=== PATIENT | male | born 1945 | race Caucasian/White ===

== ENCOUNTER 2018-09-16 19:08 | Emergency (ER) | payer OTHER ==
[2018-09-16] MEDS ORDERED: fentaNYL 100 MCG/2 ML INJ IVP ONE (19:32)
[2018-09-16] MEDS ORDERED: NS 1,000 ML IV ONE (19:32)
[2018-09-16] MEDS ORDERED: ONDANSETRON 4 MG/2 ML VIAL IVP ONE (19:32)
--- NOTE | 2018-09-16 19:37 | EDPHY ---
H & P Time Seen by Provider: 09/16/18 19:20 HPI/ROS: CHIEF COMPLAINT: Abdominal pain HISTORY OF PRESENT ILLNESS: Patient is a 72-year-old male who presents emergency department suprapubic abdominal pain. He feels as though his pain is "deep inside."He describes his pain is moderate. It is not radiate. His pain is slightly worse with movement. He feels as though he has to have a bowel movement but when he sits on the toilet he does not defecate. He denies dysuria frequency. No hematuria. No flank pain. No nausea vomiting. No diarrhea. No recent trauma. No testicular pain. No pain with defecation. No rectal bleeding. REVIEW OF SYSTEMS: 10 systems were reveiwed and are negative with the exception of the elements mentioned in the history of present illness. Past Medical/Surgical History: Includes enlarged prostate, hypothyroidism, kyphosis Past surgical history: Knee surgery, hernia repair Social history: Patient does not smoke Smoking Status: Never smoked Physical Exam: Vitals noted GENERAL: Well-appearing, in no acute distress, alert. HEENT: Eyes normal to inspection, normal pharynx, no signs of dehydration. NECK: Normal, supple. RESPIRATORY: Clear to auscultation bilaterally, no rales, rhonchi or wheezing. CVS: Regular rate and rhythm, no rubs, murmurs, or gallops. ABDOMEN: Soft, nontender, nondistended, no organomegaly. Benign on exam BACK: Normal to inspection, no CVA tenderness. SKIN: Normal color, no rash, warm, dry. No pallor. EXTREMITIES: No pedal edema, no calf tenderness, no joint swelling. NEURO/PSYCH: Alert and oriented, normal mood and affect, normal motor sensory exam. Constitutional: Initial Vital Signs Temperature (C) 36.7 C 09/16/18 19:15 Heart Rate 70 09/16/18 19:15 Respiratory Rate 16 09/16/18 19:15 Blood Pressure 157/103 H 09/16/18 19:15 O2 Sat (%) 94 09/16/18 19:15 O2 Delivery Mode Room Air Allergies/Adverse Reactions: cephalexin monohydrate [From Keflex] Allergy (Mild, Verified 04/15/10 11:56) Rash Home Medications: Medication Instructions Recorded Ciprofloxacin [Cipro] 500 mg PO BID #20 tab 09/16/18 Finasteride 09/16/18 Meloxicam 09/16/18 Tamsulosin HCl 09/16/18 Thyroid 09/16/18 metroNIDAZOLE [Flagyl 500 mg (*)] 500 mg PO BID #20 tab 09/16/18 Medical Decision Making - Diagnostics Imaging Results: Imaging Impressions Abdomen CT 09/16/18 19:54 Impression: 1. Sigmoid diverticulitis without evidence of abscess or free air. 2. Moderate hiatal hernia. 3. Ectasia of the iliac arteries. Edelmira Martinez was notified of these findings by telephone at 9:16 PM on 2018 ED Course/Re-evaluation: In the emergency department I discussed possible etiologies with the patient. I answered all of his questions. IV was placed. Laboratory studies were obtained. Patient given fentanyl 50 mcg IV for pain and Zofran 4 mg IV for nausea. Patient's white count was normal. The rest CBC was unremarkable. Chemistry panel showed a slightly low sodium. UA was negative. Abdomen pelvis CT: Please refer the dictated report. The patient has sigmoid diverticulitis. No abscess. No perforation. I discussed the results with the patient. Answered all his questions. On recheck the patient was sitting comfortably in bed. He had no new complaints. Abdomen was benign. The patient was given a dose of Flagyl and Cipro. He was given prescription upon discharge. He will follow up with his primary care physician. He is given warnings prior to leaving. Differential Diagnosis: Differential includes but is not limited to urinary tract infection, pyelonephritis, prostatitis, orchitis, small-bowel obstruction, perforation, diverticulitis, abscess - Data Points Laboratory Results: Laboratory Results 09/16/18 19:35 09/16/18 19:35 09/16/18 09/16/18 09/16/18 19:35 19:35 19:35 WBC 9.45 10^3/uL 10^3/uL (3.80-9.50) RBC 4.55 10^6/uL 10^6/uL (4.40-6.38) Hgb 14.9 g/dL g/dL (13.7-17.5) Hct 43.1 % % (40.0-51.0) MCV 94.7 fL fL (81.5-99.8) MCH 32.7 pg pg (27.9-34.1) MCHC 34.6 g/dL g/dL (32.4-36.7) RDW 12.7 % % (11.5-15.2) Plt Count 270 10^3/uL 10^3/uL (150-400) MPV 10.5 fL fL (8.7-11.7) Neut % (Auto) 79.4 % H % (39.3-74.2) Lymph % (Auto) 12.0 % L % (15.0-45.0) [place] % (Auto) 6.9 % % (4.5-13.0) Eos % (Auto) 1.2 % % (0.6-7.6) Baso % (Auto) 0.4 % % (0.3-1.7) Nucleat RBC Rel Count 0.0 % % (0.0-0.2) Absolute Neuts (auto) 7.51 10^3/uL H 10^3/uL (1.70-6.50) Absolute Lymphs (auto) 1.13 10^3/uL 10^3/uL (1.00-3.00) Absolute Monos (auto) 0.65 10^3/uL 10^3/uL (0.30-0.80) Absolute Eos (auto) 0.11 10^3/uL 10^3/uL (0.03-0.40) Absolute Basos (auto) 0.04 10^3/uL 10^3/uL (0.02-0.10) Absolute Nucleated RBC 0.00 10^3/uL 10^3/uL (0-0.01) Immature Gran % 0.1 % % (0.0-1.1) Immature Gran # 0.01 10^3/uL 10^3/uL (0.00-0.10) Sodium 134 mEq/L L mEq/L (135-145) Potassium 4.2 mEq/L mEq/L (3.5-5.2) Chloride 104 mEq/L mEq/L (97-110) Carbon Dioxide 21 mEq/l L mEq/l (22-31) Anion Gap 9 mEq/L mEq/L (6-14) BUN 22 mg/dL mg/dL (7-23) Creatinine 1.0 mg/dL mg/dL (0.7-1.3) Estimated GFR > 60 Glucose 85 mg/dL mg/dL (70-100) Calcium 9.3 mg/dL mg/dL (8.5-10.4) Urine Color PALE YELLOW Urine Appearance CLEAR Urine pH 6.0 (5.0-7.5) Ur Specific [place] 1.004 (1.002-1.030) Urine Protein NEGATIVE (NEGATIVE) Urine Ketones NEGATIVE (NEGATIVE) Urine Blood NEGATIVE (NEGATIVE) Urine Nitrate NEGATIVE (NEGATIVE) Urine Bilirubin NEGATIVE (NEGATIVE) Urine Urobilinogen NEGATIVE EU EU (0.2-1.0) Ur Leukocyte Esterase NEGATIVE (NEGATIVE) Urine RBC 1-3 /hpf /hpf (0-3) Urine WBC 1-3 /hpf /hpf (0-3) Ur Epithelial Cells NONE SEEN /lpf /lpf (NONE-1+) Urine Glucose NEGATIVE (NEGATIVE) Medications Given: Discontinued Medications Fentanyl (Sublimaze) 50 mcg IVP EDNOW ONE Stop: 09/16/18 19:33 Last Admin: 09/16/18 19:42 Dose: 50 mcg Sodium Chloride (Ns) 1,000 mls @ 0 mls/hr IV EDNOW ONE; Wide Open PRN Reason: Protocol Stop: 09/16/18 19:33 Last Admin: 09/16/18 19:43 Dose: 1,000 mls Ondansetron HCl (Zofran) 4 mg IVP EDNOW ONE Stop: 09/16/18 19:33 Last Admin: 09/16/18 19:42 Dose: 4 mg Departure - Departure Disposition: Home, Routine, Self-Care Clinical Impression: Diverticulitis Abdominal pain Qualifiers: Abdominal location: lower abdomen, unspecified Qualified Code(s): R10.30 - Lower abdominal pain, unspecified Condition: Good Instructions: Diverticulitis (ED), Abdominal Pain (ED) Additional Instructions: Take your entire course of antibiotics. Return with increasing pain, fever or any other concerns. Referrals: Coleen Gomez MD [Primary Care Provider] - 2-3 days without fail Prescriptions: Ciprofloxacin [Cipro] 500 mg PO BID #20 tab metroNIDAZOLE [Flagyl 500 mg (*)] 500 mg PO BID #20 tab
[2018-09-16 19:45] LABS: PLATELET COUNT 270 10^3/uL (150-400)
[2018-09-16] MEDS ORDERED: IOPAMIDOL (ISOVUE-300) 100 ML BTL ONE (20:36)
[2018-09-16] MEDS ORDERED: metroNIDAZOLE 500 MG TAB PO ONE (21:43)
[2018-09-16] MEDS ORDERED: CIPROFLOXACIN 500 MG TAB PO ONE (21:43)
[2018-09-16] MEDS ORDERED: HYDROCOD/APAP 5/325 PREPACK#6 BTL TAKEHOME ONE (21:43)
[2018-09-16 22:08] VITALS: BP 150/100
== END 2018-09-16 22:26 | disposition home or self-care (01) ==
DX: K57.32 Diverticulitis of large intestine without perforation or abscess without bleeding (principal); R10.30 Lower abdominal pain, unspecified; N40.0 Benign prostatic hyperplasia without lower urinary tract symptoms; E03.9 Hypothyroidism, unspecified; E86.9 Volume depletion, unspecified
CPT/HCPCS: 74177; 96361; 96374; 96375; 99285; J2405; J3010; Q9967